=== PATIENT | female | born 1955 | race Caucasian/White ===

== ENCOUNTER → 2016-07-11 | Outpatient (CLI) | payer MEDICAID ==
[~2016-07-11] MED LIST: ALBUTEROL0.63 MG/3 INH; AMOXICILLIN875 MG PO; BREO ELLIPTA 11 EACH INH; IPRATROPIUM0.2 MG/ML INH; LEVAQUIN750 MG PO; LISINOPRIL20 MG PO; PREDNISONE PO; PREDNISONE10 MG PO; PROAIR HFA8.5 GM INH
--- NOTE | ~2016-07-11 | CT57 ---
[facility] A Service of [facility] & [facility] RADIOLOGY TEXT RESULTS PATIENT: DENNYS APPLE [facility] UNIT #: [id number] AGE: [address]: Mahi Qiu SEX: F ORDER DR: [id number] [facility] [address] [place], [place] [address] [id number] O MR#: [id number] #: [id number] NAME: DENNYS APPLE. : 1955 SEX: F STUDY DATE/TIME: 07/11/2016 10:10 UNIT: [facility] ROOM: STUDY DESCRIPTION: CT Chest Wo Cont Attending Physician: Mahi Qiu A.P.R.N. Referring Physician: Mahi Qiu A.P.R.N. Ordering Physician: Mahi Qiu A.P.R.N. Primary Care Physician: An Montalvo M.D. MEDICAL IMAGING REPORT This report is preliminary unless electronic signature is present EXAM CT of the chest without contrast INDICATION 61-year-old female with followup lung nodule. History of COPD. TECHNIQUE CT of the chest was performed without contrast. Coronal and sagittal reformatted images were obtained. This CT exam was performed with one or more of the following radiation dose reduction techniques: automatic exposure control, adjustment of mA and/or kV according to patient size, and iterative reconstruction. COMPARISON 03/14/2016 FINDINGS Emphysema. Biapical scarring. Previously noted tree-in-bud nodularity within the left lower lobe has resolved. There is a new nonspecific 1.1 cm triangular density located in the superior aspect of the right middle lobe just below the minor fissure. This has developed since the CT scan from February 2016. There is no suspicious lymphadenopathy or pleural effusion. Coronary artery calcifications. Limited imaging of the upper abdomen demonstrates bilateral renal cysts. Bone windows are unremarkable. IMPRESSION 1. Emphysema. 2. Previously noted tree-in-bud nodularity within the left lower lobe has resolved. 3. Interval development of irregular triangular density in the right middle lobe just below the minor fissure measuring about 1.1 cm. Finding is nonspecific but the quick interval development suggests it STS. [facility] A Service of [facility] & [facility] RADIOLOGY TEXT RESULTS PATIENT: DENNYS APPLE LOCATION: [facility] : 55 UNIT #: [id number] AGE: [address]: Mahi Qiu SEX: F ORDER DR: is probably infectious or inflammatory. Recommend a short-interval followup chest CT in 2-3 months to document clearing Dictated by... Giles Beverly M.D. THIS IS AN ELECTRONICALLY VERIFIED REPORT Giles Beverly M.D. at 07/11/2016 4:28 PM Dorian TD: 07/11/2016 12:25 JOB #: [id number] MEDICAL IMAGING REPORT Page 1 of 1 COPY
== END | disposition home or self-care (01) ==
LOC: CCAT 09:47
DX: R93.8 Abnormal findings on diagnostic imaging of other specified body structures (principal); J43.9 Emphysema, unspecified; J98.4 Other disorders of lung
CPT/HCPCS: 71250

== ENCOUNTER → 2016-10-03 | Outpatient (CLI) | payer MEDICAID ==
--- NOTE | ~2016-10-03 | CT57 ---
[facility] Service [facility] RADIOLOGY TEXT RESULTS PATIENT: DENNYS APPLE LOCATION: [facility] : 55 UNIT #: [id number] AGE: [address]: Mahi Qiu SEX: F ORDER DR: [id number] [facility] [address] [place], [place] [address] [id number] O MR#: [id number] Acc #: [id number] NAME: DENNYS APPLE : 1955 SEX: F STUDY DATE/TIME: 10/03/2016 12:27 UNIT: [facility] ROOM: STUDY DESCRIPTION: CT Chest Wo Cont Attending Physician: Mahi Qiu A.P.R.N. Referring Physician: Mahi Qiu A.P.R.N. Ordering Physician: Mahi Qiu A.P.R.N. Primary Care Physician: An Montalvo M.D. MEDICAL IMAGING REPORT This report is preliminary unless electronic signature is present EXAM CT chest INDICATIONS Pulmonary nodule. Right middle lobe nodule. 2-month followup. TECHNIQUE CT of the chest without contrast. Coronal and sagittal reconstructions were obtained. This CT exam was performed with one or more of the following radiation dose reduction techniques: automatic exposure control, adjustment of mA and/or kV according to patient size, and iterative reconstruction. COMPARISON CT chest dated 07/11/2016 and 03/14/2016. FINDINGS There is moderate emphysema. The nodular density in the medial right middle lobe has resolved. There is minimal linear scarring in the area of the previous nodule. There are no new or suspicious pulmonary findings. No pathologically enlarged mediastinal or hilar lymph nodes. There are moderate coronary artery calcifications. There are benign cysts in both kidneys. IMPRESSION 1. Resolution of the nodular density previously described in the right middle lobe. 2. No new or suspicious pulmonary findings. 3. Emphysema. Dictated by... Roshan Holbrook M.D. [facility] A Service [facility] RADIOLOGY TEXT RESULTS PATIENT: DENNYS APPLE LOCATION: [facility] : 55 UNIT #: [id number] AGE: [address]: Mahi Qiu SEX: F ORDER DR: THIS IS AN ELECTRONICALLY VERIFIED REPORT Roshan Holbrook M.D. at 10/04/2016 7:41 AM Aide TD: 10/03/2016 17:15 JOB #: [id number] MEDICAL IMAGING REPORT Page 1 of 1 COPY
== END | disposition home or self-care (01) ==
LOC: CCAT 12:09
DX: R91.1 Solitary pulmonary nodule (principal); J43.9 Emphysema, unspecified
CPT/HCPCS: 71250